=== PATIENT | male | born 1965 ===

== ENCOUNTER 2016-12-23 12:22 | Emergency (ER) | payer SELFPAY ==
[2016-12-23 12:35] VITALS: BMI 27.3
[2016-12-23 12:39] VITALS: RESP 18; TEMP 98.7; O2SAT 99
--- NOTE | 2016-12-23 13:02 | ED PDOC ---
Arrival/HPI - General Chief Complaint: Cough, Cold, Congestion Time Seen by Provider: 12/23/16 12:44 Historian: Patient - History of Present Illness Narrative History of Present Illness (Text): 12/23/16 12:58 Adrien Connor is a 51 year old male who presents to the emergency department complaining of subjective fever and cough with yellow sputum production for past 10 days. Reports that he took Tylenol and Ibuprofen to break the fever, but states temperature increased after the medicine wore off. Patient also reports of sore throat Denies headache, dizziness, shortness of breath, nausea, vomiting, diarrhea, urinary symptoms or any other complaints at this time. 12/23/16 13:24 Time/Duration: > week (10 days ) Symptom Onset: Gradual Symptom Course: Intermittent Severity Level: Mild Activities at Onset: Light Past Medical History - Provider Review Nursing Documentation Reviewed: Yes - Infectious Disease Hx of Infectious Diseases: None - Psychiatric Hx Substance Use: No Family/Social History - Physician Review Nursing Documentation Reviewed: Yes Family/Social History: No Known Family HX Smoking Status: Never Smoked Hx Alcohol Use: Yes Frequency of alcohol use: Socially Hx Substance Use: No Allergies/Home Meds Allergies/Adverse Reactions: Allergies No Known Allergies Allergy (Verified 12/23/16 12:35) Review of Systems - Physician Review All systems were reviewed & negative as marked: Yes - Review of Systems Constitutional: Fevers. absent: Fatigue ENT: Sore Throat Respiratory: Cough, Sputum. absent: SOB Cardiovascular: absent: Chest Pain Gastrointestinal: absent: Abdominal Pain, Diarrhea, Nausea, Vomiting Genitourinary Male: Normal Neurological: absent: Headache, Dizziness Psychiatric: Normal Physical Exam Vital Signs Reviewed: Yes Vital Signs Temp Pulse Resp BP Pulse Ox 12/23/16 13:20 96 H 18 148/79 99 12/23/16 12:23 98.7 F 103 H 18 152/85 H 99 Temperature: Afebrile Blood Pressure: Normal Pulse: Tachycardic Respiratory Rate: Normal Appearance: Positive for: Well-Appearing, Non-Toxic, Comfortable Pain Distress: None Mental Status: Positive for: Alert and Oriented X 3 - Systems Exam Head: Present: Atraumatic, Normocephalic Pupils: Present: PERRL Conjunctiva: Present: Normal Pharnyx: Present: ERYTHEMA. No: EXUDATE, TONSILS ENLARGED Respiratory/Chest: Present: Other (right base crackles ). No: Respiratory Distress, Accessory Muscle Use Cardiovascular: Present: Regular Rate and Rhythm, Normal S1, S2. No: Murmurs Abdomen: Present: Normal Bowel Sounds. No: Tenderness, Distention, Peritoneal Signs, Rebound, Guarding Neurological: Present: GCS=15, CN II-XII Intact, Speech Normal Skin: Present: Warm, Dry, Normal Color. No: Rashes Psychiatric: Present: Alert, Oriented x 3, Normal Insight, Normal Concentration Medical Decision Making ED Course and Treatment: 12/23/16 13:03 Impression: A 51 year old male who presents to the ed complaining of subjective fever, cough and sore throat for 10 days. pna vs bronchitis. Plan: -- Chest X-ray -- Influenza -- Rapid Strep -- Reassess and disposition Progress Notes: 12/23/16 13:05 12/23/16 13:22 cxr neg as read by me. pt satting 100% on ra. ambulatory, speaking full sentences. 12/23/16 13:25 - Lab Interpretations Lab Results: Lab Results 12/23/16 13:04: Influenza Typ A,B (EIA) Negative for flu a/b, Grp A Beta Strep Ag Negative - RAD Interpretation Radiology Orders: 12/23/16 12:57 CHEST TWO VIEWS (PA/LAT) [RAD] Stat - Scribe Statement The provider has reviewed the documentation as recorded by the Erinibestiven Dumont Provider Attestation: All medical record entries made by the Scribe were at my direction and personally dictated by me. I have reviewed the chart and agree that the record accurately reflects my personal performance of the history, physical exam, medical decision making, and the department course for this patient. I have also personally directed, reviewed, and agree with the discharge instructions and disposition. Disposition/Present on Arrival - Present on Arrival Any Indicators Present on Arrival: No History of DVT/PE: No History of Uncontrolled Diabetes: No Urinary Catheter: No History of Decub. Ulcer: No History Surgical Site Infection Following: None - Disposition Have Diagnosis and Disposition been Completed?: Yes Diagnosis: Bronchitis Disposition: HOME/ ROUTINE Disposition Time: 13:23 Condition: STABLE Discharge Instructions (ExitCare): Acute Bronchitis (ED) Print Language: DANISH Additional Instructions: please follow up with your doctor/clinic return to er with worsening symptoms or concerns. Prescriptions: levoFLOXacin [Levaquin] 750 mg PO DAILY #7 tab Referrals: PCP,NO [Primary Care Provider] - Follow up with primary [facility] [place] - Follow up with primary [facility] [Outside] - Follow up with primary
[2016-12-23 13:22] VITALS: BP 148/79; PULSE 96
--- NOTE | 2016-12-23 16:03 | RAD ---
HISTORY: cough COMPARISON: No prior. TECHNIQUE: Chest PA and lateral FINDINGS: LUNGS: No active pulmonary disease. PLEURA: No significant pleural effusion identified. No pneumothorax apparent. CARDIOVASCULAR: Normal. OSSEOUS STRUCTURES: No significant abnormalities. VISUALIZED UPPER ABDOMEN: Normal. OTHER FINDINGS: None. IMPRESSION: No active disease.
== END 2016-12-23 13:54 | disposition home or self-care (01) ==
LOC: ED 12:22
DX: J40 Bronchitis, not specified as acute or chronic (principal)